=== PATIENT | male | born 1960 | race Caucasian/White ===

== ENCOUNTER → 2018-06-06 | Outpatient (REF) | payer BC, OTHER ==
[~2018-06-06] MED LIST: ACTO30TA15 PO; ASPI81TA85; CRAN250C2 PO; FIBE625T27 PO; FISH1000 PO; FLUTISP; JANU50TA8 PO; LEVO75TA34 PO; LISI-538 PO; MELO15TA28 PO; PRIL20CA9 PO
[2018-06-06 13:25] LABS: INFLUENZA A AMPLIFICATION NEGATIVE (NEGATIVE); INFLUENZA B AMPLIFICATION NEGATIVE (NEGATIVE)
== END ==
LOC: M LAB REF 12:43
PROVIDERS: ATTEND Physician Assistant
DX: J11.1 Influenza due to unidentified influenza virus with other respiratory manifestations (principal)

== ENCOUNTER → 2018-09-05 | Outpatient (CLI) | payer OTHER ==
[~2018-09-05] MED LIST changes: +FLUT50SP12; -FLUTISP
[2018-09-05 17:57] LABS: BASO % 0.4 % (0.0-1.0); EOS # 0.1 10^3/uL (0.0-0.50); HEMATOCRIT 48.2 % (42.0-52.0); HEMOGLOBIN 15.4 g/dl (13.5-17.5); LYMPH # 2.4 10^3/uL (1.5-4.5); LYMPH % 34.8 % (24.0-44.0); MEAN CORPUSCULAR HEMOGLOBIN 30.5 pg (27.0-33.0); MEAN CORPUSCULAR VOLUME 95.4 fl (80.0-96.0); MONO # 0.5 10^3/uL (0.0-0.8); MONO % 7.8 % (0.0-5.0); NEUTROPHILS # 3.7 10^3/uL (1.8-7.7); NEUTROPHILS % 54.7 % (36.0-66.0); PLATELET COUNT, AUTOMATED 243 10^3/uL (150-450); RED BLOOD COUNT 5.05 10^6/uL (4.30-6.10); WHITE BLOOD COUNT 6.8 10^3/uL (4.0-10.0)
[2018-09-05 18:04] LABS: ALBUMIN 3.4 GM/DL (3.2-5.2); ALT/SGPT 20 U/L (12-78); BILIRUBIN,TOTAL 0.5 MG/DL (0.2-1.0); BLOOD UREA NITROGEN 17 MG/DL (7-18); CALCIUM LEVEL 8.8 MG/DL (8.5-10.1); CARBON DIOXIDE LEVEL 26 MEQ/L (21-32); CHLORIDE LEVEL 105 MEQ/L (98-107); CHOLESTEROL LEVEL 135 MG/DL (<200); CHOLESTEROL RISK RATIO 3.068 (<5); CREATININE FOR GFR 1.13 MG/DL (0.70-1.30); GLOMERULAR FILTRATION RATE > 60.0 (>56); GLUCOSE, FASTING 132 MG/DL (70-100); HDL CHOLESTEROL 44 MG/DL (>40); LDL CHOLESTEROL 72 MG/DL (<100); NON-HDL-C 91 MG/DL; POTASSIUM SERUM 5.6 MEQ/L (3.5-5.1); SODIUM LEVEL 140 MEQ/L (136-145); TOTAL PROTEIN 6.8 GM/DL (6.4-8.2); TRIGLYCERIDES LEVEL 94 MG/DL (<150)
[2018-09-05 18:12] LABS: HEMOGLOBIN A1c 7.6 %
== END ==
LOC: M WUC 08:06
PROVIDERS: ATTEND Physician Assistant
DX: D64.9 Anemia, unspecified (principal); I10 Essential (primary) hypertension; E78.5 Hyperlipidemia, unspecified; E11.3299 Type 2 diabetes mellitus with mild nonproliferative diabetic retinopathy without macular edema, unspecified eye

== ENCOUNTER → 2019-09-05 | Outpatient (CLI) | payer BC, OTHER ==
[~2019-09-05] MED LIST changes: +FARX1TAB3 PO; +JENT2.5T5 PO; +OMEP-218 PO; +ROSU10TA6 PO; +TRUL10IN SC
== END ==
LOC: M LABSMTC 10:20
PROVIDERS: ATTEND Anesthesiology
DX: Z03.818 Encounter for observation for suspected exposure to other biological agents ruled out (principal); Z11.59 Encounter for screening for other viral diseases
CPT/HCPCS: C9803; U0003

== ENCOUNTER 2019-09-08 08:42 | Day surgery (SDC) | payer BC, OTHER ==
[~2019-09-08] VITALS: Ht 182.9 cm; Wt 109.3 kg
[~2019-09-08 08:42] MED LIST changes: +NS 1,000 ML IV ONE
[2019-09-08] MEDS ORDERED: LIDOCAINE 2% 100MG/5ML SDV (FOR ANES.) As Ordered ONE (11:13)
[2019-09-08] MEDS ORDERED: propofoL 200 MG/20 ML VIAL As Ordered ONE (11:13)
--- NOTE | 2019-09-08 11:38 | ROOR ---
Patient Name: Bradly Acosta Procedure Date: 09/08/2019 11:03 AM Date of : 1960 Age: 59 Room: [facility] Gender: Male Note Status: Finalized Procedure: Colonoscopy Indications: High risk colon cancer surveillance: Personal history of colonic polyps, Last colonoscopy: May 2015 Providers: Shankar BERNSTEIN MD Referring MD: HAILE DONOVAN Requesting Provider: Medicines: Monitored Anesthesia Care Complications: No immediate complications. Procedure: Pre-Anesthesia Assessment: - The heart rate, respiratory rate, oxygen saturations, blood pressure, adequacy of pulmonary ventilation, and response to care were monitored throughout the procedure. The Colonoscope was introduced through the anus and advanced to the terminal ileum, with identification of the appendiceal orifice and IC valve. The colonoscopy was performed without difficulty. The patient tolerated the procedure well. The quality of the bowel preparation was good. Findings: The digital rectal exam findings include palpable anorectal nodularity. A 10 mm polyp was found in the anus. The polyp was semi-sessile. Biopsies were taken with a cold forceps for histology. A 4 mm polyp was found in the sigmoid colon. The polyp was sessile. The polyp was removed with a cold snare. Resection and retrieval were complete. The exam was otherwise without abnormality on direct and retroflexion views. Impression: - Palpable rectal mass found on digital rectal exam. - One 10 mm polyp at the anus. (previous exam biopsy was c/w inflammatory nodule). This was not removed. This was biopsied. - One 4 mm polyp in the sigmoid colon, removed with a cold snare. Resected and retrieved. - The examination was otherwise normal on direct and retroflexion views. Recommendation: - Telephone endoscopist for pathology results in 2 weeks. - If the pathology report of the anal nodularity reveals no adenomatous tissue, then repeat the colonoscopy for surveillance in 5 years. - If the pathology report of the anal nodularity reveals adenomatous tissue, then refer to a surgeon for excision at appointment to be scheduled. Shankar Bernstein MD Shankar BERNSTEIN MD 09/08/2019 11:37:37 AM Electronically signed by Shankar BERNSTEIN MD Number of Addenda: 0 Note Initiated On: 09/08/2019 11:03 AM Estimated Blood Loss: Estimated blood loss: none.
[2019-09-08 12:20] VITALS: BP 136/68
== END 2019-09-08 12:30 | disposition home or self-care (01) ==
LOC: M OPP 08:42
PROVIDERS: ATTEND Internal Medicine Gastroenterology
DX: Z12.11 Encounter for screening for malignant neoplasm of colon (principal); Z86.010 Personal history of colon polyps; K62.89 Other specified diseases of anus and rectum; K62.0 Anal polyp; K63.5 Polyp of colon; E11.9 Type 2 diabetes mellitus without complications; Z79.899 Other long term (current) drug therapy

== ENCOUNTER → 2021-01-28 | Outpatient (CLI) | payer BC, OTHER ==
[~2021-01-28] MED LIST changes: -ASPI81TA85; +ASPI81TA86; -LISI-538 PO; +LISI20TA33 PO; -NS 1,000 ML IV ONE
--- NOTE | 2021-01-28 08:54 | REP ---
INDICATION: PAIN. COMPARISON: None TECHNIQUE: Two views each hip FINDINGS: The femoral heads are spherical in shape and symmetric in appearance. There is mild bilateral hip joint space narrowing. There is no fracture, dislocation, or subluxation. There is no evidence of buttressing. IMPRESSION: Mild chronic changes. <Electronically signed by Randall Stephen > 01/28/21 [id number]
== END ==
LOC: M WUC 08:16
PROVIDERS: ATTEND Physician Assistant
DX: M25.552 Pain in left hip (principal); M25.551 Pain in right hip

== ENCOUNTER 2021-01-31 05:26 | Emergency (ER) | payer BC, OTHER ==
[~2021-01-31] VITALS: Ht 182.9 cm; Wt 112.7 kg
[2021-01-31 05:27] VITALS: BP 126/81
[2021-01-31] MEDS ORDERED: LINZ145C PO (05:35)
== END 2021-01-31 06:40 | disposition left against medical advice (07) ==
LOC: M ED 05:26
DX: Z53.21 Procedure and treatment not carried out due to patient leaving prior to being seen by health care provider (principal)

== ENCOUNTER 2021-05-26 17:12 | Emergency (ER) | payer BC, OTHER ==
[~2021-05-26] VITALS: Ht 182.9 cm; Wt 112.4 kg
[~2021-05-26 17:12] MED LIST changes: +LINZ145C PO; +OMEP-173 PO; -OMEP-218 PO
[2021-05-26 21:41] VITALS: BP 135/78
== END 2021-05-26 21:56 | disposition home or self-care (01) ==
LOC: M ED 17:12
DX: M66.862 Spontaneous rupture of other tendons, left lower leg (principal); I10 Essential (primary) hypertension; E78.5 Hyperlipidemia, unspecified; E11.9 Type 2 diabetes mellitus without complications; F10.10 Alcohol abuse, uncomplicated; Y92.9 Unspecified place or not applicable; Y93.67 Activity, basketball; Y99.9 Unspecified external cause status; Z79.811 Long term (current) use of aromatase inhibitors; Z79.4 Long term (current) use of insulin

== ENCOUNTER → 2022-04-17 | Outpatient (REF) | payer BC, OTHER ==
[2022-04-17 20:23] LABS: HEMOGLOBIN A1c 6.9 % (4.0-6.0)
== END ==
LOC: M LAB REF 16:10
PROVIDERS: ATTEND Physician Assistant
DX: E11.3299 Type 2 diabetes mellitus with mild nonproliferative diabetic retinopathy without macular edema, unspecified eye (principal)

== ENCOUNTER → 2023-10-09 | Outpatient (REF) | payer OTHER, BC ==
[~2023-10-09] MED LIST changes: -ROSU10TA6 PO; +ROSU10TA61 PO
[2023-10-09 18:34] LABS: HEMOGLOBIN A1c 7.4 % (4.0-6.0)
== END ==
LOC: M LABWUC 16:16
PROVIDERS: ATTEND Physician Assistant
DX: E11.3299 Type 2 diabetes mellitus with mild nonproliferative diabetic retinopathy without macular edema, unspecified eye (principal)